=== PATIENT | male | born 1940 | race Hispanic/Latino ===

== ENCOUNTER → 2017-12-17 | Outpatient (CLI) | payer OTHER, MEDICARE ==
[~2017-12-17] MED LIST: AMLO5TAB2 PO; DONE10TA43 PO; LISI40TA4 PO; MAGN250T10 PO; MEMA14CA PO; TRAM50TA4 PO
== END | disposition home or self-care (01) ==
LOC: SHCH 14:08
PROVIDERS: ATTEND Internal Medicine Cardiovascular Disease
DX: I08.2 Rheumatic disorders of both aortic and tricuspid valves (principal); I10 Essential (primary) hypertension
CPT/HCPCS: 93306

== ENCOUNTER 2018-01-17 09:45 | Inpatient (IN) | payer OTHER, MEDICARE ==
[~2018-01-17] VITALS: Ht 181.6 cm; Wt 97.4 kg
[2018-01-17 09:43] VITALS: BP 141/71
[2018-01-17 09:49] LABS: BASOPHILS % (AUTO) 0.6 % (0.0-5.0); EOSINOPHILS % (AUTO) 2.8 % (0.0-8.0); HEMATOCRIT 41.3 % (42-54); LYMPHOCYTES % (AUTO) 14.7 % (21.0-51.0); MEAN CORPUSCULAR HGB CONC 34.6 g/dL (32.0-36.0); MEAN CORPUSCULAR VOLUME 89.8 fL (79-99); NEUTROPHILS % (AUTO) 73.9 % (40.0-77.0); PLATELET COUNT (AUTO) 189 K/uL (130-400); RED CELL DISTRIBUTION WIDTH 13.3 % (11.0-15.5); WHITE BLOOD COUNT (AUTO) 7.1 K/uL (4.8-10.8)
[2018-01-17 09:55] LABS: POTASSIUM 3.7 mmol/L (3.5-5.1)
[2018-01-17] MEDS ORDERED: MEMA14CA PO (09:58)
[2018-01-17] MEDS ORDERED: DONE10TA43 PO (09:58)
[2018-01-17] MEDS ORDERED: LISI40TA4 PO (09:58)
[2018-01-17] MEDS ORDERED: MAGN250T10 PO (09:58)
[2018-01-20] VITALS (26 sets, daily range): BP systolic 134–160; BP diastolic 70–90
[2018-01-20] MEDS: CEFAZOLIN SODIUM 1 GM VIAL IVP SCH ×2 (06:00→08:00)
[2018-01-20] MEDS ORDERED: LACTATED RINGERS 1000ML 1,000 ML IV ONE (06:15)
[2018-01-20] MEDS ORDERED: AMLO5TAB2 PO (06:43)
[2018-01-20] MEDS ORDERED: DEXAMETHASONE SOD PHOSPHATE 10MG/ML 1ML VIAL ONE ×2 (06:56→08:07)
[2018-01-20] MEDS ORDERED: ONDANSETRON HCL 4 MG/2 ML VIAL ONE ×2 (06:56→08:07)
[2018-01-20] MEDS ORDERED: BUPIVACAINE/EPI/PF 0.25% 30ML VIAL IJ ONE (06:56)
[2018-01-20] MEDS ORDERED: BACITRACIN 50,000 UNIT VIAL ONE (06:56)
[2018-01-20] MEDS ORDERED: GLYCOPYRROLATE 0.2 MG/ML 5 ML VIAL ONE ×2 (06:56→08:07)
[2018-01-20] MEDS ORDERED: THROMBIN-JMI 20000 UNIT KIT TP ONE (06:56)
[2018-01-20] MEDS ORDERED: LIDOCAINE PF 2% 5ML ABBOJECT ONE (06:56)
[2018-01-20] MEDS ORDERED: NEOSTIGMINE 5MG/5ML SYR IV ONE ×2 (06:56→08:06)
[2018-01-20] MEDS ORDERED: PROPOFOL 10 MG/ML 20ML VIAL IV ONE (06:56)
[2018-01-20] MEDS ORDERED: FENTANYL CITRATE PF 50 MCG/1 ML 2ML VIAL ONE ×2 (06:57→07:57)
[2018-01-20] MEDS ORDERED: MIDAZOLAM HCL 1 MG/ML 2ML VIAL ONE (06:57)
[2018-01-20] MEDS ORDERED: SUCCINYLCHOLINE CHLORIDE 20 MG/ML 10 ML VIAL ONE (08:06)
[2018-01-20] MEDS ORDERED: PHENYLEPHRINE HCL 10 MG/ML 1ML VIAL IV ONE (08:06)
[2018-01-20] MEDS ORDERED: ROCURONIUM BROMIDE 10MG/1ML 5ML VL ONE (08:06)
[2018-01-20] MEDS ORDERED: LIDOCAINE HCL 4% LTA SOL 4 ML VIAL ONE (08:07)
[2018-01-20] MEDS ORDERED: MORPHINE SULFATE 2 MG/ML 1ML SYG IVP PRN (09:00)
[2018-01-20] MEDS: AMLODIPINE BESYLATE 5 MG TAB PO SCH (09:00)
[2018-01-20] MEDS: LISINOPRIL 40 MG TABLET PO SCH (09:00)
[2018-01-20] MEDS ORDERED: CEFAZOLIN SODIUM 1 GM VIAL IVP SCH (09:15)
[2018-01-20] MEDS: MAGNESIUM OXIDE 400 MG TABLET PO SCH (11:35)
[2018-01-20] MEDS: DONEPEZIL HCL 5 MG TAB PO SCH (11:35)
[2018-01-20] MEDS: LACTATED RINGERS 1000ML 1,000 ML IV SCH ×2 (11:39→22:00)
[2018-01-20] MEDS ORDERED: CEFAZOLIN 1GM / D5W 50ML 50 ML IV SCH (14:00)
[2018-01-20] MEDS ORDERED: MORPHINE SULFATE 4 MG/1ML SYG ONE ×2 (14:38→20:10)
[2018-01-20] MEDS ORDERED: MEMANTINE HCL 14 MG PO SCH (21:00)
[2018-01-21 04:28] VITALS: BP 145/76
[2018-01-21 07:45] VITALS: BP 162/76
[2018-01-21] MEDS: LISINOPRIL 40 MG TABLET PO SCH (08:35)
[2018-01-21] MEDS: AMLODIPINE BESYLATE 5 MG TAB PO SCH (08:35)
[2018-01-21] MEDS: MAGNESIUM OXIDE 400 MG TABLET PO SCH (08:35)
[2018-01-21] MEDS: DONEPEZIL HCL 5 MG TAB PO SCH (08:35)
[2018-01-21] MEDS ORDERED: TRAM50TA4 PO (10:58)
[2018-01-21 11:23] VITALS: BP 127/57
== END 2018-01-21 12:12 | disposition home or self-care (01) | DRG 33 ==
LOC: EDSTATUS 09:45 → DAHIP 01-20 05:57 → 4BH 01-20 10:19
PROVIDERS: ADMIT Neurological Surgery; ATTEND Neurological Surgery
PROC: 00160J6 Bypass Cerebral Ventricle to Peritoneal Cavity with Synthetic Substitute, Open Approach (ICD-10-PCS; principal; 2018-01-20 07:30)
DX: G91.2 (Idiopathic) normal pressure hydrocephalus (principal); F03.90 Unspecified dementia, unspecified severity, without behavioral disturbance, psychotic disturbance, mood disturbance, and anxiety; I10 Essential (primary) hypertension
CPT/HCPCS: 36415; 80048; 85025; A4218; A4300; A4344; J0330; J0690; J1100; J2001; J2250; J2270; J2370; J2405; J2704; J2710; J3010; J3490; J7120

== ENCOUNTER → 2018-02-25 | Outpatient (CLI) | payer OTHER, MEDICARE | END | disposition home or self-care (01) | LOC: RAH 08:50 | PROVIDERS: ATTEND Neurological Surgery | DX: G31.9 Degenerative disease of nervous system, unspecified (principal); G91.2 (Idiopathic) normal pressure hydrocephalus | CPT/HCPCS: 70450 ==

== ENCOUNTER → 2018-11-03 | Outpatient (CLI) | payer OTHER, MEDICARE ==
[~2018-11-03] MED LIST changes: -AMLO5TAB2 PO; +AMLO5TAB9 PO
== END | disposition home or self-care (01) ==
LOC: RAH 09:27
PROVIDERS: ATTEND Psychiatry & Neurology Neurology
DX: G31.9 Degenerative disease of nervous system, unspecified (principal); Z98.2 Presence of cerebrospinal fluid drainage device
CPT/HCPCS: 70450

== ENCOUNTER → 2020-10-28 | Outpatient (CLI) | payer OTHER, MEDICARE ==
[~2020-10-28] MED LIST changes: +AMLO-257 PO; -AMLO5TAB9 PO
== END | disposition home or self-care (01) ==
LOC: RAH 12:48
PROVIDERS: ATTEND Psychiatry & Neurology Neurology
DX: G31.9 Degenerative disease of nervous system, unspecified (principal); F03.90 Unspecified dementia, unspecified severity, without behavioral disturbance, psychotic disturbance, mood disturbance, and anxiety; G91.2 (Idiopathic) normal pressure hydrocephalus; Z98.2 Presence of cerebrospinal fluid drainage device
CPT/HCPCS: 70450

== ENCOUNTER → 2022-07-14 | Outpatient (CLI) | payer OTHER, MEDICARE ==
[~2022-07-14] MED LIST changes: -LISI40TA4 PO; +LISI40TA9 PO
== END | disposition home or self-care (01) ==
LOC: RAH 14:38
PROVIDERS: ATTEND Family Medicine
DX: N50.89 Other specified disorders of the male genital organs (principal); N43.3 Hydrocele, unspecified
CPT/HCPCS: 76870

== ENCOUNTER 2022-10-15 07:21 | Day surgery (SDC) | payer OTHER, MEDICARE ==
[2022-10-09 15:29] LABS: BASOPHILS % (AUTO) 0.6 % (0.0-5.0); EOSINOPHILS % (AUTO) 1.5 % (0.0-8.0); HEMATOCRIT 40.9 % (42-54); LYMPHOCYTES % (AUTO) 18.9 % (21.0-51.0); MEAN CORPUSCULAR HEMOGLOBIN 30.4 pg (27.0-33.0); MEAN CORPUSCULAR HGB CONC 33.5 g/dL (32.0-36.0); MEAN CORPUSCULAR VOLUME 90.7 fL (79-99); MONOCYTES % (AUTO) 6.8 % (3.0-13.0); NEUTROPHILS % (AUTO) 71.8 % (40.0-77.0); PLATELET COUNT (AUTO) 231 K/uL (130-400); RED BLOOD CELL COUNT(AUTO) 4.51 MIL/uL (4.50-6.20); RED CELL DISTRIBUTION WIDTH 12.5 % (11.0-15.5); WHITE BLOOD COUNT (AUTO) 7.2 K/uL (4.8-10.8)
[2022-10-09 15:43] LABS: CREATININE 1.1 mg/dL (0.5-1.5); POTASSIUM 3.8 mmol/L (3.5-5.1)
[2022-10-09 15:47] LABS: INR 0.98 (0.85-1.15); PROTHROMBIN TIME 10.7 SEC (9.6-11.6)
[2022-10-09 15:49] LABS: PARTIAL THROMBOPLASTIN TIME 27.6 SEC (26.3-35.5)
[2022-10-14 14:08] VITALS: BP 141/67
[2022-10-15] VITALS (14 sets, daily range): BP systolic 140–164; BP diastolic 69–93
[~2022-10-15] VITALS: Ht 185.4 cm; Wt 94.5 kg
[~2022-10-15 07:21] MED LIST changes: -AMLO-257 PO; +AMLO-258 PO; +LEVO-170 PO; -LISI40TA9 PO; +LOSA100T58 PO; -MAGN250T10 PO; +MEMA10TA55 PO; -MEMA14CA PO; +OXYB10TA4 PO; -TRAM50TA4 PO; +TRAZ-185 PO
[2022-10-15] MEDS ORDERED: LACTATED RINGERS 1000ML 1,000 ML IV ONE (07:38)
[2022-10-15] MEDS ORDERED: BACITRACIN 28.4 GM OINT TP ONE (07:47)
[2022-10-15] MEDS ORDERED: BUPIVACAINE/PF 0.5% 10ML VIAL ONE (07:47)
[2022-10-15] MEDS: CEFAZOLIN SODIUM 2 GM VIAL IVPB PRN ×2 (07:52→09:55)
[2022-10-15] MEDS ORDERED: LIDOCAINE PF 100MG/5ML (2%) SYRINGE 5ML ONE (09:46)
[2022-10-15] MEDS ORDERED: ONDANSETRON 4MG INJ ONE (09:47)
[2022-10-15] MEDS ORDERED: FENTANYL CITRATE PF 50 MCG/1 ML 2ML VIAL ONE (09:47)
[2022-10-15] MEDS ORDERED: PROPOFOL 10 MG/ML 20ML VIAL IV ONE (09:47)
[2022-10-15] MEDS ORDERED: SUCCINYLCHOLINE 200MG/10ML SYR ONE (10:26)
[2022-10-15] MEDS ORDERED: GLYCOPYRROLATE 1 MG/5 ML SYRINGE ONE (10:27)
== END 2022-10-15 13:20 | disposition home or self-care (01) ==
LOC: DAH 07:21
PROVIDERS: ATTEND Urology
DX: N43.2 Other hydrocele (principal); Z20.822 Contact with and (suspected) exposure to COVID-19; N47.1 Phimosis; I10 Essential (primary) hypertension; Z79.01 Long term (current) use of anticoagulants; Z79.899 Other long term (current) drug therapy; Z98.890 Other specified postprocedural states
CPT/HCPCS: 80048; 85025; 85610; 85730; 87426; 36415; 71045; 93005; 55040; 54161; A4663 ×2; J7120; J3010; J0330; J3490 ×2; J2001; J2704; J2405; J0690; A4215 ×2; A4222 ×2; A4216; A4606 ×2; A4223 ×4; A4221 ×2; A4600